=== PATIENT | female | born 1965 | race Caucasian/White ===

== ENCOUNTER 2017-06-03 11:40 | Emergency (ER) | payer OTHER ==
[~2017-06-03] VITALS: Ht 154.9 cm; Wt 109.2 kg
[2017-06-03 11:47] VITALS: BP 137/81; PULSE 81; RESP 18; TEMP 97.9; O2SAT 99
--- NOTE | 2017-06-03 12:38 | PD ---
Physical Exam Time Seen by Provider: 12:34 Narrative Patient was sent over from [facility] for pelvic ultrasound secondary to dysfunctional uterine bleeding. See Dr. Mcarthur's note for initial assessment, history and physical. Patient reports continued pain and rates pain 7/10. She has not been given anything for pain and has not taking anything today for pain. 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 Denies allergies. Data Data Last Documented VS Vital Signs Date Time Temp Pulse Resp B/P (MAP) Pulse Ox O2 Delivery O2 Flow Rate FiO2 06/03/17 11:47 97.9 81 18 137/81 (99) 99 Orders Orders Acetamin-Hydrocod 325-5 Mg ([place] 5-325 (06/03/17 12:45) Us Pelvis Comp W Transvaginal (06/03/17 ) Ed Discharge Order (06/03/17 13:48) [facility] Supervised Visit with UMESH: Yes Narrative Course Patient was sent over from [facility] for pelvic ultrasound secondary to dysfunctional uterine bleeding. See Dr. Mcarthur's note for initial assessment, history and physical. Pelvic ultrasound ordered. [place] ordered for pain. 1345: Pelvic ultrasound concludes: Transabdominal exam suggests 2 fibroids in the uterine fundus measuring 3.4 and 4.3 cm. 2. Neither ovary could be identified either transabdominally or transvaginally. No suspicious adnexal mass lesions. 3. Multiple cervical nabothian type cysts. Patient provided a copy of the ultrasound report. Instructed patient to follow- up with gynecology. Ibuprofen prescribed for home. Instructed patient to follow up with primary care provider. Patient verbalizes understanding and agreement with treatment plan. Patient is medically cleared and stable for discharge. Discussed reasons to return to the emergency department. Patient agrees with treatment plan. The patients vital signs are stable and the patient is stable for outpatient follow-up and treatment. Patient discharged home, stable and in no acute distress. 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 Primary Care Physician Patient Instructions: Dysfunctional Uterine Bleeding (ED), General Instructions , Uterine Fibroids (ED) Additional Instruction: Ibuprofen or Tylenol as directed and as needed for pain Follow-up with gynecology Follow-up with primary care provider Med/Other Pt SpecificInfo: Prescription(s) given Scripts Hydrocodone-Acetaminophen ([place]over) 5 Mg-325 Mg Tab 1 TAB PO Q4H Y for PAIN, #10 TAB 0 Refills Prov: Abbie Encinas 06/03/17 Ibuprofen (Ibuprofen) 800 Mg Tab 800 MG PO Q6HR Y for PAIN, #30 TAB 0 Refills Prov: Abbie Encinas 06/03/17 Disposition: 01 DISCHARGE HOME Condition: Stable Abbie Encinas Jun 03, 2017 12:38
[2017-06-03] MEDS ORDERED: ACETAMINOPHEN/HYDROcodone 325 MG/5 MG TAB PO ONE (12:45)
--- NOTE | 2017-06-03 13:42 | RADRPT ---
EXAM DATE/TIME: 06/03/2017 13:45 [place] COMPARISON: No previous studies available for comparison. INDICATIONS : Left pelvic pain, vaginal bleeding with clots. MEDICAL HISTORY : Left pelvic pain, vaginal bleeding with clots. SURGICAL HISTORY : None. ENCOUNTER: Initial ACUITY: 2 days PAIN SCORE: 7/10 LOCATION: Bilateral pelvis MEASUREMENTS: TRANSABDOMINAL: UTERUS: 11.0 x 8.6 x 7.2 cm ENDOMETRIAL STRIPE: 10 mm RIGHT OVARY: not seen LEFT OVARY: not seen UTERUS: 11.0 x 10. x 7.0 cm ENDOMETRIAL STRIPE: 13 mm RIGHT OVARY: not seen cm LEFT OVARY: not seen cm FINDINGS: UTERUS: Suggestion of 2, 3.4 x 3.0 and 4.3 x 2.6 cm hypoechoic areas in the uterine fundus concerning for sm all fibroids. These are best seen in the transabdominal view as the uterine fundus is difficult to id entify transvaginally. Multiple nabothian type cysts in the region of the cervix RIGHT OVARY: Could not be identified on either the transabdominal or transvaginal view LEFT OVARY: Could not be identified on either the transabdominal or transvaginal view. MISCELLANEOUS: No free fluid. CONCLUSION: 1. Transabdominal exam suggests 2 fibroids in the uterine fundus measuring 3.4 and 4.3 cm. 2. Neither ovary could be identified either transabdominally or transvaginally. No suspicious adnexal mass lesions. 3. Multiple cervical nabothian type cysts. Alexis Osborn MD on June 03, 2017 at 13:35 Board Certified Radiologist. This report was verified electronically.
[2017-06-03] MEDS ORDERED: IBUP1TAB7 PO (13:47)
[2017-06-03] MEDS ORDERED: NORC5TAB PO (13:56)
== END 2017-06-03 14:15 | disposition home or self-care (01) ==
LOC: NEPD 11:40
DX: N93.8 Other specified abnormal uterine and vaginal bleeding (principal); D25.9 Leiomyoma of uterus, unspecified; N88.8 Other specified noninflammatory disorders of cervix uteri
CPT/HCPCS: 76830; 76856